=== PATIENT | male | born 1945 | race Caucasian/White ===

== ENCOUNTER → 2019-03-23 13:07 | Outpatient (CLI) | payer MEDICARE, BC ==
[2014-08-24 12:38] VITALS: BMI 30.2
--- NOTE | ~2019-03-23 | EC ---
PATIENT:PRAMOD THOMAS DATE OF SERVICE: 03/23/19 SEX: M MEDICAL RECORD: [id number] DATE OF : 49 [facility] AGE OF PATIENT: 74 ADMISSION DATE: 03/23/19 REFERRING PHYSICIAN: INTERPRETING PHYSICIAN: TOM LOPEZ MD ECHOCARDIOGRAM REPORT ECHO CHARGES 4 ECHO COMPLETE Date: 03/23/19 CLINICAL DIAGNOSIS: CARDIOMYOPATHY H/O CAD/HTN ECHOCARDIOGRAPHIC MEASUREMENTS (adult normal given) AC root (d.<3.7cm) 4.3 cm LV Septum d (<1.2 cm> 1.1 cm Valve Excursion 1.8 cm LV Septum (systole) 1.8 cm Left Atria (s.<4.0cm> 3.5 cm LVPW d(<1.2cm) 1.0 cm RV (d.<2.3cm) 3.0 cm LVPW (sytole) 1.6 cm LV diastole(<5.6CM) 5.4 cm MV E-F(>70mm/sec) cm LV systole 3.5 cm LVOT Diameter 2.0 cm MV exc.(>10mm) cm Est.ejection fraction (50-75%) % DOPPLER: LVIT cm/sec A 67.0 cm/sec E 56.0 cm/sec LA cm/sec RVSP 18.1 mmHg LVOT 89.0 cm/sec AOP1/2T m/s Asc. Ao 112 cm/sec RVOT 58.0 cm/sec RA cm/sec PA 74.0 cm/sec AV Gradient Peak 5.0 mmHg AV Mean 2.5 mmHg AV Area 2.8 cm MV Gradient Peak 4.1 mmHg MV Mean 1.5 mmHg MV Area cm COMMENTS: OP - HC Aerial Photogrammetrist: 1 DILEEP PRIYA Field Captain: 3 Dr. Mayer TAPE# PACS Pericardial Effusion N DATE OF SERVICE: Adequate 2D, color flow imaging, spectral Doppler, and M-mode. No LVH. LV internal dimensions are normal. LV is mildly globally hypo with more pronounced inferior hypo. LV function lower limits of normal, mildly reduced at 45% to 50%. Aortic valve is sclerosed without stenosis by Doppler interrogation. Left atrium is normal at 3.5 cm. Mitral valve shows no prolapse. Trace MR. Right-sided chambers are grossly normal. Trace TR. ECHOCARDIOGRAM REPORT [id number] PRAMOD THOMAS TRANSINT:[id number] Voice Confirmation ID: [id number] DOCUMENT ID: [id number] TOM LOPEZ MD CC: [id number] DICTATION DATE: 03/27/19 135 EDUCATION GENERAL MANAGER: 03/27/192117 DEP CLI 03/23/19 [place] [id number] [place] [id number]
[~2019-03-23 13:07] MED LIST: ASPIRIN325 MG PO; ATROVENT 0.06%15 ML NS; BRILINTA90 MG PO; CARDIZEM CD240 MG PO; CORTEF10 MG; ENDOCET 7.5/3251 TAB; NITROSTAT0.4 MG; PRAVACHOL40 MG PO; VITAMIN D3400 UNI1 PO
== END | disposition home or self-care (01) ==
LOC: D.HCCECHO 13:07
PROVIDERS: ATTEND Internal Medicine Interventional Cardiology
DX: I25.10 Atherosclerotic heart disease of native coronary artery without angina pectoris (principal)